=== PATIENT | male | born 2000 | race Two or more races ===

== ENCOUNTER 2023-12-05 12:38 | Emergency (ER) | payer OTHER ==
[~2023-12-05] VITALS: Ht 172.7 cm; Wt 68.0 kg
[2023-12-05] MEDS ORDERED: GUAIFENESIN 200 MG/10 ML BLIST.PACK PO STA (15:46)
[2023-12-05] MEDS ORDERED: METHYLPREDNISOLONE SOD SUCC 125 MG VIAL IM STA (15:46)
[2023-12-05] MEDS ORDERED: ACETAMINOPHEN 500 MG GEL..CAP PO STA (15:46)
[2023-12-05] MEDS ORDERED: IPRATROPIUM/ALBUTEROL SULFATE 3 ML AMPUL.NEB IH SCH (16:00)
[2023-12-05 17:29] LABS: HEMATOCRIT 43.9 % (39.0-48.0); HEMOGLOBIN 15.1 g/dL (13-16.00); MEAN CELL VOLUME 86.1 fL (80.0-100.00); MEAN CORPUSCULAR HEMOGLOBIN 29.6 pg (27.00-32.0); MEAN CORPUSCULAR HGB CONC 34.4 g/dl (32.0-36.0); PLATELET COUNT 202 K/uL (150-450); RED CELL DISTRIBUTION WIDTH 13.4 % (11.5-14.5)
[2023-12-05] MEDS ORDERED: CEFTRIAXONE SODIUM 1,000 MG VIAL IM STA (18:30)
== END 2023-12-05 19:05 | disposition home or self-care (01) ==
LOC: ER 12:38
PROVIDERS: General Practice
DX: R05.9 Cough, unspecified (principal); Z20.822 Contact with and (suspected) exposure to COVID-19